=== PATIENT | female | born 1985 | race Caucasian/White ===

== ENCOUNTER 2020-02-01 13:16 | Emergency (ER) | payer BC ==
[~2020-02-01] VITALS: Ht 162.6 cm; Wt 63.5 kg
--- NOTE | 2020-02-01 13:48 | NUR ---
ED Nurse Note: Patient presents to ER due to left underarm pain since this morning. Sligh redness and swelling area on the affected area noted. Reports no fever or chills. Patient does waxing. Provided comfort measures. Bed in lowest position.
[2020-02-01 14:00] VITALS: BP 131/88
--- NOTE | 2020-02-01 14:17 | Emergency Room Report ---
History of Present Illness General Chief Complaint: Pain Source: Patient Present Illness HPI 34-year-old female presents to the emergency department complaining of 9 out of 10 severity pain, tenderness, swelling and erythema underneath the left axilla since yesterday. Patient reports she felt a sharp pain yesterday while at work but did not investigate. Patient states that last night she felt tenderness in that area and then after awakening this morning her symptoms are worse. Patient denies fevers or chills. No other aggravating or relieving factors at this time. Denies rashes or lesions elsewhere on her body. She denies experiencing symptoms like this in the past. COVID-19 risk:Travel to affect: No Allergies: Coded Allergies: No Known Allergies (Unverified , 02/01/20) Patient History Past Medical History: see triage record Past Surgical History: none Pertinent Family History: none Last Menstrual Period: 2 weeks ago Now: No Reviewed Nursing Documentation: PMH: Agreed; PSxH: Agreed Nursing Documentation-PMH Past Medical History: No History, Except For History Of Psychiatric Problem: Yes - Anxiety Review of Systems All Other Systems: negative except mentioned in HPI Physical Exam Vital Signs Date Time Temp Pulse Resp B/P (MAP) Pulse Ox O2 Delivery O2 Flow Rate FiO2 02/01/20 13:38 98.2 105 18 127/86 (100) 99 Room Air Sp02 EP Interpretation: reviewed, normal General Appearance: no apparent distress, alert, GCS 15, non-toxic Head: normocephalic, atraumatic Eyes: bilateral eye normal inspection, bilateral eye PERRL ENT: hearing grossly normal, normal voice Neck: full range of motion Respiratory: lungs clear, normal breath sounds, speaking full sentences Cardiovascular #1: regular rate, rhythm Cardiovascular #2: 2+ radial (L) Musculoskeletal: back normal, normal range of motion, gait/station normal, non- tender Neurologic: alert, motor strength/tone normal, oriented x3, sensory intact, responsive, speech normal Psychiatric: judgement/insight normal Skin: other - palpable 1.5cm area of fluctuance/induration that is erythematous , swollen and warm. no blisters or vessicles. No obvious bites. Medical Decision Making PA Attestation Dr. Mcrae Is my supervising Physician whom patient management has been discussed with. Diagnostic Impression: Primary Impression: Cellulitis Qualified Codes: L03.114 - Cellulitis of left upper limb ER Course 34-year-old female presents to the emergency department complaining of 9 out of 10 severity pain, tenderness, swelling and erythema underneath the left axilla since yesterday. Patient reports she felt a sharp pain yesterday while at work but did not investigate. Patient states that last night she felt tenderness in that area and then after awakening this morning her symptoms are worse. Patient denies fevers or chills. No other aggravating or relieving factors at this time. Denies rashes or lesions elsewhere on her body. Ddx considered but are not limited to cellulitis, abscess, hidradenitis, Necrotizing fasciitis, allergic reaction, burn, dermatitis, insect bite just to name a few. Vital signs: are WNL, pt. is afebrile H&PE are most consistent with mild cellulitis without palpable fluctuance ORDERS: none required at this time, the diagnosis is clinical ED INTERVENTIONS: -I & D was the recommended treatment for this pt. possible abscess. Pt. declined and wants to wait and try antibiotics first due to pain. DISCHARGE: At this time pt. is stable for d/c to home. Will provide printed patient care instructions, and any necessary prescriptions. Care plan and follow up instructions have been discussed with the patient prior to discharge. Last Vital Signs Date Time Temp Pulse Resp B/P (MAP) Pulse Ox O2 Delivery O2 Flow Rate FiO2 02/01/20 13:38 98.2 105 18 127/86 (100) 99 Room Air Status: improved Disposition: HOME, SELF-CARE Condition: Stable Scripts Naproxen* (NAPROSYN*) 250 Mg Tablet 250 MG ORAL TWICE A DAY for 10 Days, #20 TAB 0 Refills Prov: Camila Rodríguez 02/01/20 Mupirocin* (MUPIROCIN*) 22 Gm Oint...g. 1 APPLIC TOPIC THREE TIMES A DAY, #22 GM Prov: Camila Rodríguez 02/01/20 Trimethoprim/Sulfamethoxazole 160/800* (BACTRIM DS TABLET*) 1 Each Tablet 1 TAB ORAL TWICE A DAY for 7 Days, #14 TAB Prov: Camila Rodríguez 02/01/20 Cephalexin* (KEFLEX*) 500 Mg Capsule 500 MG ORAL EVERY 12 HOURS for 7 Days, #14 CAP 0 Refills Prov: Camila Rodríguez 02/01/20 Departure Forms: Return to Work Return to Work Date: Feb 03, 2020 Work Restrictions: None Return to Full Activity: Feb 03, 2020 Patient Instructions: Cellulitis, [id number] Additional Instructions: Take medications as directed. Follow up with a Primary Care Provider in 3-5 days, even if your symptoms have resolved. Return sooner to ED if new symptoms occur, or current symptoms become worse. - Please note that this Emergency Department Report was dictated using [employer] software, occasionally this can lead to erroneous entry secondary to interpretation by the dictation equipment. Camila Rodríguez Feb 01, 2020 14:17
[2020-02-01] MEDS ORDERED: MUPIROCIN22 GM TOPIC (14:19)
[2020-02-01] MEDS ORDERED: BACTRIM DS TAB1 EAC1 ORAL (14:19)
[2020-02-01] MEDS ORDERED: NAPROXEN250 MG ORAL (14:19)
[2020-02-01] MEDS ORDERED: CEPHALEXIN500 MG ORAL (14:19)
[2020-02-01 14:30] VITALS: BP 132/92
--- NOTE | 2020-02-01 14:30 | NUR ---
ER DISCHARGE NOTE: Patient is cleared to be discharged per ERMD, pt is aox4, on room air, with stable vital signs as documented. pt was given dc and prescription instructions and was able to verbalize understanding, pt id band removed. pt is able to ambulate with steady gait. pt took all belongings.
== END 2020-02-01 14:30 | disposition home or self-care (01) ==
LOC: EMR 14:14
DX: L03.114 Cellulitis of left upper limb (principal); F41.9 Anxiety disorder, unspecified
CPT/HCPCS: 99282